=== PATIENT | male | born 1990 | race Caucasian/White ===

== ENCOUNTER 2016-12-17 01:57 | Emergency (ER) | payer SELFPAY ==
[2009-09-09 09:39] VITALS: BMI 23.0
== END 2016-12-17 03:09 | disposition home or self-care (01) ==
LOC: D.ER 01:57
DX: K08.89 Other specified disorders of teeth and supporting structures (principal); K02.9 Dental caries, unspecified; K04.7 Periapical abscess without sinus; G40.909 Epilepsy, unspecified, not intractable, without status epilepticus; F17.200 Nicotine dependence, unspecified, uncomplicated

== ENCOUNTER 2017-02-20 13:27 | Emergency (ER) | payer SELFPAY ==
[2009-09-09 09:39] VITALS: BMI 23.0
== END 2017-02-20 14:41 | disposition home or self-care (01) ==
LOC: D.ER 13:27
DX: J20.9 Acute bronchitis, unspecified (principal); J06.9 Acute upper respiratory infection, unspecified; F17.200 Nicotine dependence, unspecified, uncomplicated

== ENCOUNTER 2019-09-16 07:51 | Day surgery (SDC) | payer OTHER ==
[~2019-09-16] VITALS: Ht 182.9 cm; Wt 91.4 kg
[2019-09-16] MEDS ORDERED: DEPAKOTE250 MG PO (08:58)
[2019-09-16 09:03] VITALS: BP 128/77; Ht 182.9 cm; Wt 91.4 kg
--- NOTE | 2019-09-16 11:30 | NUR ---
PT DC INSTRUCTIONS REVIEWED AT THIS TIME, PT VERBALIZES UNDERSTANDING. PT IV REMOVED AT THIS TIME, INTACT, NO REDNESS OR SWELLING NOTED AT SITE.
--- NOTE | 2019-09-16 11:41 | NUR ---
PT LEAVING OPS AT THIS TIME VIA WC, NAD NOTED AT THIS TIME.
--- NOTE | 2019-09-17 11:34 | OP ---
PATIENT NAME: MELVA MAURER MEDICAL RECORD: [id number] :86 [facility] DATE: SURGEON: LLUVIA MATOS DO DATE OF OPERATION: 09/16/2019 PROCEDURE: Colonoscopy with biopsies. INDICATIONS FOR PROCEDURE: Diarrhea, change in bowel habits, left lower quadrant abdominal pain, abdominal tenderness. SCOPE: Olympus video pediatric colonoscope. MEDICATIONS: Propofol 150 mg IV and Versed 2 mg IV per anesthesia. WITHDRAWAL TIME: 7 minutes. ESTIMATED BLOOD LOSS: Minimal. COMPLICATIONS: None. FINDINGS: Informed consent was given. The patient was made comfortable with the above medication. After reaching an adequate level of sedation by slow IV push, the patient was placed on his left side. A digital rectal examination was performed and it was normal. The endoscope was then advanced under direct visualization through the rectum to the cecum, confirmed by the presence of the appendiceal orifice and ileocecal valve. The endoscope was slowly withdrawn and mucosa was carefully examined. The prep quality was good. The colon mucosa appeared normal throughout. Random cold forceps biopsies were taken to submit for histopathology and to rule out the presence of microscopic colitis. The terminal ileum was briefly intubated. There were some patchy areas of erythema. Cold forceps biopsies were taken from the terminal ileum to submit for histopathology. Retroflexion was performed in the rectum with visualization of a normal appearing rectal wall. The endoscope was withdrawn from the patient. The patient tolerated the procedure well and there were no complications. IMPRESSIONS: 1. Mild erythema in the terminal ileum. Biopsies taken. 2. Otherwise, normal colonoscopy. PLAN AND RECOMMENDATIONS: 1. Discharge home when recovery parameters are met. 2. Follow up biopsy specimen results. 3. High fiber diet. 4. Continue current medications. The patient's change in bowels and diarrhea could be related to use of Depakote. This medication could be looked at and an alternative may be beneficial for patient if indicated. 5. Prescription for dicyclomine 20 mg to be taken t.i.d. p.r.n. loose stools or abdominal pain and cramping will be provided. TRANSINT:[id number] Voice Confirmation ID: [id number] DOCUMENT ID: [id number] OPERATIVE REPORT [id number] MELVA MAURER LLUVIA MATOS DO at [id number] CC: [id number] DICTATION DATE: 09/16/19 1056 TABLE COVER FOLDER: 09/16/19 1140 [facility] [place] 09/16/19 [place] [id number] [place] [id number]
== END 2019-09-16 11:42 | disposition home or self-care (01) ==
LOC: D.OPS 07:51
PROVIDERS: ATTEND Internal Medicine Gastroenterology
DX: R19.7 Diarrhea, unspecified (principal); R19.4 Change in bowel habit; R10.32 Left lower quadrant pain; R10.819 Abdominal tenderness, unspecified site